=== PATIENT | male | born 1965 | race African-American/Black ===

== ENCOUNTER 2016-03-29 14:19 | Emergency (ER) | payer OTHER ==
[~2016-03-29] VITALS: Ht 182.9 cm; Wt 69.4 kg
[~2016-03-29 14:19] MED LIST: HUMULIN R100 UNITS/ SC; HUMULIN R500 UNIT/1 SC; LANTUS 10100 UNITS/ SC; LANTUS 3 M100 UNITS1 SC; MOBIC15 MG PO; NORVASC10 MG PO; ULTRAM50 MG PO
[2016-03-29 15:10] LABS: BASOPHIL COUNT 0.1 K/uL (0-0.1); EOSINOPHIL (%) 3.2 % (0-5); EOSINOPHIL COUNT 0.3 K/uL (0-0.3); HEMATOCRIT 39.2 % (38.0-50.0); IMMATURE GRANULOCYTE (%) 0.3 % (0.0-0.7); IMMATURE GRANULOCYTE COUNT 0.3 K/uL; LYMPHOCYTE COUNT 2.5 K/uL (1.0-2.8); MCH 30.5 PG (29.0-34.0); MCHC 35.7 G/DL (30.0-36.0); MCV 85.4 FL (86-99); MEAN PLAT.VOLUME 9.8 uM^3 (9.0-12.4); MONOCYTE COUNT 0.5 K/uL (0-0.8); NEUTROPHIL (%) 65.9 % (45-76); NEUTROPHIL COUNT 6.7 K/uL (1.8-6.4); PLATELET COUNT 279 K/uL (156-360); RBC DIS.WIDTH-CV 12.1 % (11.8-14.6); RBC DIS.WIDTH-SD 36.4 % (39-53); RED BLOOD COUNT 4.59 M/uL (4.00-5.50); WHITE BLOOD COUNT 10.2 K/uL (4.1-10.2)
[2016-03-29 15:22] LABS: CHLORIDE 93 mEq/L (99-109)
[2016-03-29 15:22] LABS: POINT-OF-CARE METER ID UU13113702
[2016-03-29 15:23] LABS: SODIUM 129 mEq/L (136-147)
[2016-03-29 15:26] LABS: ANION GAP 14 MEQ/L (2-14)
[2016-03-29 15:28] LABS: GFR ESTIMATE (CALCULATED) > 59 mL/min/
[2016-03-29 15:29] LABS: UREA NITROGEN (BUN) 14 mg/dL (9-23)
[2016-03-29 15:33] LABS: GLUCOSE 450 mg/dL (70-99)
[2016-03-29 16:08] LABS: ADD MIUA? NO; BILIRUBIN NEGATIVE; BLOOD NEGATIVE; COLOR YELLOW ((YELLOW)); GLUCOSE (STRIP) >=1000; KETONES NEGATIVE; LEUKOCYTES NEGATIVE; NITRITE NEGATIVE; PROTEIN (STRIP) NEGATIVE; SPECIFIC GRAVITY 1.034 (1.000-1.030); UCUL ADDED? NO; UROBILINOGEN 0.2 MG/DL (0.2-1.0)
[2016-03-29 16:13] LABS: POINT-OF-CARE METER ID UU13113702; POINT-OF-CARE USER ID STWBNM43
[2016-03-29] MEDS ORDERED: LANTUS 10100 UNITS/ SC (16:18)
[2016-03-29] MEDS ORDERED: NORVASC10 MG PO (16:18)
[2016-03-29] MEDS ORDERED: NOVOLIN,HU100 UNITS1 SC (16:18)
[2016-03-29 16:20] VITALS: BP 148/96
[2016-03-31 15:01] LABS: POINT-OF-CARE METER ID UU13113778
== END 2016-03-29 16:45 | disposition home or self-care (01) ==
LOC: EME 14:19
PROVIDERS: Emergency Medicine
DX: E11.65 Type 2 diabetes mellitus with hyperglycemia (principal); I10 Essential (primary) hypertension; F17.200 Nicotine dependence, unspecified, uncomplicated; Z91.120 Patient's intentional underdosing of medication regimen due to financial hardship
CPT/HCPCS: 80048; 81003; 82948; 85025; 99281; 99285; J7030

== ENCOUNTER 2016-04-24 11:55 | Observation (INO) | payer OTHER ==
[~2016-04-24] VITALS: Ht 182.9 cm; Wt 70.9 kg
[~2016-04-24 11:55] MED LIST changes: +NOVOLIN,HU100 UNITS1 SC
[2016-04-24 12:51] LABS: HEMATOCRIT 41.5 % (38.0-50.0); MCHC 35.7 G/DL (30.0-36.0); MEAN PLAT.VOLUME 10.1 uM^3 (9.0-12.4); PLATELET COUNT 298 K/uL (156-360); RBC DIS.WIDTH-CV 12.2 % (11.8-14.6); RBC DIS.WIDTH-SD 36.5 % (39-53); RED BLOOD COUNT 4.94 M/uL (4.00-5.50)
[2016-04-24 13:00] LABS: CHLORIDE 96 mEq/L (99-109); POTASSIUM 4.4 mEq/L (3.7-5.4); SODIUM 134 mEq/L (136-147)
[2016-04-24 13:03] LABS: ANION GAP 12 MEQ/L (2-14)
[2016-04-24 13:04] LABS: GLUCOSE 417 mg/dL (70-99)
[2016-04-24 13:05] LABS: GFR ESTIMATE (CALCULATED) > 59 mL/min/
[2016-04-24 13:06] LABS: UREA NITROGEN (BUN) 12 mg/dL (9-23)
[2016-04-24] MEDS ORDERED: LANTUS 3 M100 UNITS1 SC (14:46)
[2016-04-24] MEDS ORDERED: AMLODIPINE BESY10 MG PO (14:46)
[2016-04-24] MEDS ORDERED: HUMULIN R100 UNITS/ SC (14:48)
[2016-04-24 16:04] LABS: TROP-I INTERPRETATION NEGATIVE; TROPONIN-I < 0.01 ng/mL (0.0-0.30)
[2016-04-24 17:50] VITALS: BP 151/89
[2016-04-24 18:18] LABS: Estimated Average Glucose 349 mg/dL (70-123); HEMOGLOBIN A1c (GLYCOHEMOGLOB) 13.8 % HGB (Below 5.7)
[2016-04-24 20:25] VITALS: BP 145/88
[2016-04-24 21:53] LABS: TROP-I INTERPRETATION NEGATIVE; TROPONIN-I < 0.01 ng/mL (0.0-0.30)
[2016-04-24 22:19] LABS: POINT-OF-CARE METER ID UU14162513
[2016-04-25] VITALS: BP 142/92
[2016-04-25 04:24] VITALS: BP 142/92
[2016-04-25 08:35] VITALS: BP 142/99
[2016-04-25 08:37] LABS: POINT-OF-CARE METER ID UU13113700
[2016-04-25 12:01] VITALS: BP 148/87
[2016-04-25 12:49] LABS: POINT-OF-CARE METER ID UU13113700
== END 2016-04-25 12:56 | disposition left against medical advice (07) ==
LOC: EME 11:55 → 5WEST 15:04 → EDOF 15:04 → 5WEST 17:32
PROVIDERS: Hospitalist; Internal Medicine
DX: R53.1 Weakness (principal); G83.89 Other specified paralytic syndromes; E11.65 Type 2 diabetes mellitus with hyperglycemia; Z79.4 Long term (current) use of insulin; F14.10 Cocaine abuse, uncomplicated
CPT/HCPCS: 70140; 70450; 70551; 71020; 71550; 72141; 80048; 82948; 83036; 84443; 84484; 85027; 93005; 93880; 99281; 99285; G0378; J1650; J1815; J7030

== ENCOUNTER 2016-05-19 02:25 | Inpatient (IN) | payer OTHER ==
[~2016-05-19] VITALS: Ht 182.9 cm; Wt 65.6 kg
[~2016-05-19 02:25] MED LIST changes: +AMLODIPINE BESY10 MG PO
[2016-05-19 03:11] LABS: BASOPHIL COUNT 0.1 K/uL (0-0.1); EOSINOPHIL (%) 1.2 % (0-5); EOSINOPHIL COUNT 0.1 K/uL (0-0.3); HEMATOCRIT 42.9 % (38.0-50.0); IMMATURE GRANULOCYTE (%) 0.2 % (0.0-0.7); IMMATURE GRANULOCYTE COUNT 0.2 K/uL; LYMPHOCYTE COUNT 2.4 K/uL (1.0-2.8); MCHC 35.4 G/DL (30.0-36.0); MCV 84.8 FL (86-99); MEAN PLAT.VOLUME 9.8 uM^3 (9.0-12.4); MONOCYTE (%) 4.2 % (3-12); MONOCYTE COUNT 0.4 K/uL (0-0.8); NEUTROPHIL (%) 70.6 % (45-76); NEUTROPHIL COUNT 7.2 K/uL (1.8-6.4); PLATELET COUNT 332 K/uL (156-360); RBC DIS.WIDTH-CV 12.8 % (11.8-14.6); RBC DIS.WIDTH-SD 38.8 % (39-53); RED BLOOD COUNT 5.06 M/uL (4.00-5.50); WHITE BLOOD COUNT 10.2 K/uL (4.1-10.2)
[2016-05-19 03:20] LABS: ADD MIUA? NO; BILIRUBIN NEGATIVE; BLOOD NEGATIVE; COLOR STRAW ((YELLOW)); GLUCOSE (STRIP) >=500; KETONES 20; LEUKOCYTES NEGATIVE; NITRITE NEGATIVE; PROTEIN (STRIP) 30; SPECIFIC GRAVITY 1.027 (1.000-1.030); UCUL ADDED? NO; UROBILINOGEN 0.2 MG/DL (0.2-1.0)
[2016-05-19 03:20] LABS: CHLORIDE 98 mEq/L (99-109); POTASSIUM 3.8 mEq/L (3.7-5.4); SODIUM 138 mEq/L (136-147)
[2016-05-19 03:22] LABS: GLUCOSE 302 mg/dL (70-99)
[2016-05-19 03:23] LABS: ANION GAP 14 MEQ/L (2-14)
[2016-05-19 03:25] LABS: GFR ESTIMATE (CALCULATED) > 59 mL/min/; SERUM ETHYL ALCOHOL 55 mg/dL
[2016-05-19 03:26] LABS: UREA NITROGEN (BUN) 7 mg/dL (9-23)
[2016-05-19 03:28] LABS: AMPHETAMINE NEGATIVE (500 ng/mL); BARBITURATES NEGATIVE (200 ng/mL); BENZODIAZEPINES NEGATIVE (150 ng/mL); COCAINE NEGATIVE (150 ng/mL); METHADONE NEGATIVE (200 ng/mL); METHAMPHETAMINE NEGATIVE (500 ng/mL); OPIATES (MORPHINE) NEGATIVE (100 ng/mL); OXYCODONE NEGATIVE (100 ng/mL); PHENCYCLIDINE NEGATIVE (25 ng/mL); PROPOXYPHENE NEGATIVE (300 ng/mL); THC CANNABINOIDS NEGATIVE (50 ng/mL); TRICYCLIC ANTIDEPRESSANTS NEGATIVE (300 ng/mL)
[2016-05-19 03:28] LABS: CREATINE KINASE 122 IU/L (1-294); TOTAL CK 122 IU/L (1-294)
[2016-05-19 03:29] LABS: INTERNAL CONTROLS VALID? YES
[2016-05-19 03:29] LABS: PTT 25.3 (25-32)
[2016-05-19 03:32] LABS: TROP-I INTERPRETATION NEGATIVE; TROPONIN-I < 0.01 ng/mL (0.0-0.30)
[2016-05-19 03:34] LABS: CK-MB 0.8 ng/mL (0.0-4.9)
[2016-05-19 04:54] LABS: HDL CHOLESTEROL 35 MG/DL (Desirable>=40); NON-HDL CHOLESTEROL 161 mg/dL (Desirable<160); TOTAL CHOLESTEROL 196 mg/dL (Desirable<200); TRIGLYCERIDES 549 MG/DL (Normal: <150)
[2016-05-19 07:07] LABS: Estimated Average Glucose 326 mg/dL (70-123)
[2016-05-19 07:08] LABS: HEMATOCRIT 38.6 % (38.0-50.0); MCH 30.1 PG (29.0-34.0); MCHC 35.5 G/DL (30.0-36.0); MCV 84.8 FL (86-99); MEAN PLAT.VOLUME 9.7 uM^3 (9.0-12.4); PLATELET COUNT 298 K/uL (156-360); RBC DIS.WIDTH-CV 12.5 % (11.8-14.6); RBC DIS.WIDTH-SD 37.9 % (39-53); RED BLOOD COUNT 4.55 M/uL (4.00-5.50)
[2016-05-19 07:47] LABS: ALKALINE PHOSPHATASE 60 IU/L (3-129); ANION GAP 10 MEQ/L (2-14); CHLORIDE 98 MEQ/L (99-109); GFR ESTIMATE (CALCULATED) > 59 mL/min/; GLUCOSE 191 mg/dL (70-99); SAMPLE HEMOLYSIS CHECK 1; SAMPLE ICTERIC CHECK 0; SAMPLE LIPEMIA CHECK 0; SODIUM 137 MEQ/L (136-147); UREA NITROGEN (BUN) 7 mg/dL (9-23)
[2016-05-19 08:05] LABS: TOTAL BILIRUBIN 0.5 MG/DL (0.0-1.0)
[2016-05-19 10:11] LABS: POINT-OF-CARE METER ID UU14100415
[2016-05-19 12:53] LABS: POINT-OF-CARE METER ID UU14100415
[2016-05-19 16:02] VITALS: BP 157/95
[2016-05-19 20:08] VITALS: BP 187/99
[2016-05-20 00:05] VITALS: BP 163/78
[2016-05-20 03:10] VITALS: BP 154/88
[2016-05-20 03:52] VITALS: BP 150/100
[2016-05-20 07:58] VITALS: BP 136/83
[2016-05-20 08:51] LABS: LYME DISEASE SEROLOGY SCREEN NEGATIVE (NEGATIVE)
[2016-05-22 12:41] LABS: ANTI-NUCLEAR AB SCRN/RFLX(ANA) NONREACTIVE (NONREACTIVE)
== END 2016-05-20 14:14 | disposition left against medical advice (07) | DRG 556 ==
LOC: EME → EDBD 02:25 → EDOF 04:40 → 5SOUTH 05:53 → EDOF 05:53 → 5SOUTH 15:53
PROVIDERS: Emergency Medicine; Hospitalist; Internal Medicine; Specialist
DX: M62.81 Muscle weakness (generalized) (principal); E11.65 Type 2 diabetes mellitus with hyperglycemia; I10 Essential (primary) hypertension; R47.81 Slurred speech; M47.812 Spondylosis without myelopathy or radiculopathy, cervical region; M48.02 Spinal stenosis, cervical region; E78.5 Hyperlipidemia, unspecified; F14.90 Cocaine use, unspecified, uncomplicated; F17.210 Nicotine dependence, cigarettes, uncomplicated; E78.1 Pure hyperglyceridemia; F10.10 Alcohol abuse, uncomplicated; Z91.19 Patient's noncompliance with other medical treatment and regimen; Z79.4 Long term (current) use of insulin; Z83.3 Family history of diabetes mellitus; Z80.3 Family history of malignant neoplasm of breast
CPT/HCPCS: 70450; 70496; 70498; 70551; 71010; 80048; 80053; 80061; 81003; 82550; 82553; 82945; 82948; 83036; 83873 90; 83916 90; 84157; 84484; 85025; 85027; 85610; 85651; 85730; 86038; 86235; 86618; 89051; 92523 GN; 92526 GN; 93005; 93306; 99281; 99285; G0480; G9162 GN CH; G9163 GN CH; G9164 GN CH; J1644; J1815; J1885; J3411; J3475; J7030

== ENCOUNTER 2016-06-16 00:48 | Emergency (ER) | payer OTHER ==
[~2016-06-16] VITALS: Ht 182.9 cm; Wt 70.3 kg
[2016-06-16 02:34] LABS: ADD MIUA? NO; BILIRUBIN NEGATIVE; BLOOD NEGATIVE; COLOR STRAW ((YELLOW)); GLUCOSE (STRIP) >=500; KETONES NEGATIVE; LEUKOCYTES NEGATIVE; NITRITE NEGATIVE; PROTEIN (STRIP) NEGATIVE; SPECIFIC GRAVITY 1.014 (1.000-1.030); UCUL ADDED? NO; UROBILINOGEN 0.2 MG/DL (0.2-1.0)
[2016-06-16] MEDS ORDERED: KEFLEX500 MG PO (02:59)
[2016-06-16] MEDS ORDERED: VOLTAREN 1% GE100 GM TP (02:59)
[2016-06-16 03:13] VITALS: BP 139/92
== END 2016-06-16 03:14 | disposition home or self-care (01) ==
LOC: EXP 00:48 → EME 00:48 → EXP 03:14
PROVIDERS: Physician Assistant
DX: R10.32 Left lower quadrant pain (principal); I10 Essential (primary) hypertension; E11.9 Type 2 diabetes mellitus without complications; Z79.4 Long term (current) use of insulin; F17.200 Nicotine dependence, unspecified, uncomplicated
CPT/HCPCS: 74176; 81003; 99281; 99284

== ENCOUNTER 2016-07-14 12:48 | Emergency (ER) | payer OTHER ==
[~2016-07-14] VITALS: Ht 182.9 cm; Wt 69.8 kg
[~2016-07-14 12:48] MED LIST changes: +KEFLEX500 MG PO; +VOLTAREN 1% GE100 GM TP
[2016-07-14 12:56] VITALS: BP 175/116
== END 2016-07-14 16:14 | disposition left against medical advice (07) ==
LOC: EME 12:48
DX: M25.551 Pain in right hip (principal); M25.552 Pain in left hip; M79.604 Pain in right leg; M79.671 Pain in right foot; M79.672 Pain in left foot; Z91.81 History of falling; Z53.21 Procedure and treatment not carried out due to patient leaving prior to being seen by health care provider

== ENCOUNTER 2016-07-17 10:21 | Emergency (ER) | payer OTHER ==
[~2016-07-17] VITALS: Ht 182.9 cm; Wt 72.8 kg
[2016-07-17] MEDS ORDERED: FLEXERIL10 MG PO (11:50)
[2016-07-17] MEDS ORDERED: ULTRAM50 MG PO (11:50)
[2016-07-17 12:07] VITALS: BP 155/85
== END 2016-07-17 12:07 | disposition left against medical advice (07) ==
LOC: EME 10:21
DX: M25.552 Pain in left hip (principal); M25.561 Pain in right knee; G89.29 Other chronic pain; W18.30XA Fall on same level, unspecified, initial encounter; E11.9 Type 2 diabetes mellitus without complications; E78.5 Hyperlipidemia, unspecified; I10 Essential (primary) hypertension; Z86.73 Personal history of transient ischemic attack (TIA), and cerebral infarction without residual deficits; Z79.4 Long term (current) use of insulin; Z87.891 Personal history of nicotine dependence
CPT/HCPCS: 99281; 99283

== ENCOUNTER 2016-08-02 22:16 | Observation (INO) | payer OTHER ==
[~2016-08-02] VITALS: Ht 182.9 cm; Wt 66.7 kg
[~2016-08-02 22:16] MED LIST changes: +FLEXERIL10 MG PO
[2016-08-02 23:11] LABS: MCH 30.6 PG (29.0-34.0); MCHC 35.8 G/DL (30.0-36.0); MCV 85.5 FL (86-99); MEAN PLAT.VOLUME 9.8 uM^3 (9.0-12.4); PLATELET COUNT 328 K/uL (156-360); RBC DIS.WIDTH-CV 11.7 % (11.8-14.6); RBC DIS.WIDTH-SD 36.3 % (39-53); RED BLOOD COUNT 4.68 M/uL (4.00-5.50); WHITE BLOOD COUNT 12.1 K/uL (4.1-10.2)
[2016-08-02 23:24] LABS: CHLORIDE 100 mEq/L (99-109); POTASSIUM 3.3 mEq/L (3.7-5.4); SODIUM 139 mEq/L (136-147)
[2016-08-02 23:26] LABS: GLUCOSE 149 mg/dL (70-99)
[2016-08-02 23:27] LABS: ANION GAP 13 MEQ/L (2-14)
[2016-08-02 23:30] LABS: GFR ESTIMATE (CALCULATED) > 59 mL/min/
[2016-08-02 23:31] LABS: UREA NITROGEN (BUN) 11 mg/dL (9-23)
[2016-08-02 23:32] LABS: TROP-I INTERPRETATION NEGATIVE; TROPONIN-I < 0.01 ng/mL (0.0-0.30)
[2016-08-03] LABS: SERUM ETHYL ALCOHOL < 10 mg/dL
[2016-08-03 00:41] LABS: MAGNESIUM 2.1 mg/dL (1.3-2.7)
[2016-08-03 01:33] VITALS: BP 156/88
[2016-08-03 03:22] LABS: ADD MIUA? NO; BILIRUBIN NEGATIVE; BLOOD NEGATIVE; COLOR YELLOW ((YELLOW)); GLUCOSE (STRIP) >=500; KETONES NEGATIVE; LEUKOCYTES NEGATIVE; NITRITE NEGATIVE; PROTEIN (STRIP) NEGATIVE; SPECIFIC GRAVITY 1.017 (1.000-1.030); UCUL ADDED? NO
[2016-08-03 03:37] LABS: AMPHETAMINES QUANT VALUE 0 NG/ML; BARBITUATES QUANT VALUE 0 NG/ML; BENZODIAZEPINES QUANT VALUE 0 NG/ML; BENZODIAZEPINES, URINE SCREEN Negative (200 ng/mL); MARIJUANA QUANT VALUE 0 NG/ML; PHENCYCLIDINE QUANT VALUE 0 NG/ML
[2016-08-03 03:49] VITALS: BP 132/74
[2016-08-03 07:41] VITALS: BP 136/87
[2016-08-03 08:15] LABS: POINT-OF-CARE METER ID UU13113831
[2016-08-03 09:30] LABS: TROP-I INTERPRETATION NEGATIVE; TROPONIN-I < 0.01 ng/mL (0.0-0.30)
[2016-08-03 10:20] VITALS: BP 130/77
[2016-08-03 12:25] LABS: POINT-OF-CARE METER ID UU13113831
[2016-08-03] MEDS ORDERED: OMEPRAZOLE20 MG PO (13:50)
[2016-08-03] MEDS ORDERED: IBUPROFEN400 MG PO (13:50)
[2016-08-03 13:59] LABS: TROP-I INTERPRETATION NEGATIVE; TROPONIN-I 0.01 ng/mL (0.0-0.30)
[2016-08-03 18:34] LABS: POINT-OF-CARE METER ID UU14162513
[2016-08-03 18:57] VITALS: BP 134/84
== END 2016-08-03 21:02 | disposition home or self-care (01) ==
LOC: EME 22:16 → EDOF 08-03 00:21 → 5WEST 08-03 01:26
PROVIDERS: Emergency Medicine; Physician Assistant Medical; Student in an Organized Health Care Education/Training Program
DX: R07.89 Other chest pain (principal); I16.0 Hypertensive urgency; I10 Essential (primary) hypertension; E87.6 Hypokalemia; R00.0 Tachycardia, unspecified; R51 Headache; M25.551 Pain in right hip; M25.561 Pain in right knee; E78.5 Hyperlipidemia, unspecified; E11.9 Type 2 diabetes mellitus without complications; F10.10 Alcohol abuse, uncomplicated; Z79.4 Long term (current) use of insulin; Z86.73 Personal history of transient ischemic attack (TIA), and cerebral infarction without residual deficits; Z87.891 Personal history of nicotine dependence
CPT/HCPCS: 71020; 73502; 73552; 73564; 80048; 80306 90; 81003; 82948; 83735; 83880; 84132; 84484; 85027; 93005; 99281; 99285; G0378; G0480; J0360; J1200; J1650; J1815; J1885; J2270; J2405; J3411; J3480; J7030

== ENCOUNTER 2016-08-05 03:59 | Emergency (ER) | payer OTHER ==
[~2016-08-05] VITALS: Ht 182.9 cm; Wt 69.1 kg
[~2016-08-05 03:59] MED LIST changes: +IBUPROFEN400 MG PO; +OMEPRAZOLE20 MG PO
[2016-08-05 04:27] LABS: HEMATOCRIT 40.2 % (38.0-50.0); MCH 30.6 PG (29.0-34.0); MCHC 35.8 G/DL (30.0-36.0); MCV 85.4 FL (86-99); MEAN PLAT.VOLUME 9.5 uM^3 (9.0-12.4); PLATELET COUNT 328 K/uL (156-360); RBC DIS.WIDTH-CV 11.4 % (11.8-14.6); RBC DIS.WIDTH-SD 35.5 % (39-53); RED BLOOD COUNT 4.71 M/uL (4.00-5.50); WHITE BLOOD COUNT 8.4 K/uL (4.1-10.2)
[2016-08-05 04:36] LABS: CHLORIDE 103 mEq/L (99-109); POTASSIUM 3.7 mEq/L (3.7-5.4); SODIUM 139 mEq/L (136-147)
[2016-08-05 04:38] LABS: GLUCOSE 155 mg/dL (70-99)
[2016-08-05 04:40] LABS: ANION GAP 10 MEQ/L (2-14); TOTAL BILIRUBIN 0.5 mg/dL (0.0-1.0)
[2016-08-05 04:42] LABS: ALKALINE PHOSPHATASE 63 IU/L (3-129); GFR ESTIMATE (CALCULATED) > 59 mL/min/
[2016-08-05 04:43] LABS: UREA NITROGEN (BUN) 10 mg/dL (9-23)
[2016-08-05 04:45] LABS: LIPASE 17 U/L (1.0-51.0)
[2016-08-05 06:17] LABS: TROP-I INTERPRETATION NEGATIVE; TROPONIN-I < 0.01 ng/mL (0.0-0.30)
[2016-08-05 06:38] LABS: ADD MIUA? NO; BILIRUBIN NEGATIVE; BLOOD NEGATIVE; COLOR STRAW ((YELLOW)); GLUCOSE (STRIP) 50; KETONES NEGATIVE; LEUKOCYTES NEGATIVE; NITRITE NEGATIVE; PROTEIN (STRIP) NEGATIVE; SPECIFIC GRAVITY 1.027 (1.000-1.030); UCUL ADDED? NO; UROBILINOGEN 0.2 MG/DL (0.2-1.0)
[2016-08-05] MEDS ORDERED: ZOFRAN8 MG PO (06:50)
[2016-08-05] MEDS ORDERED: BENTYL20 MG PO (06:50)
[2016-08-05 07:24] VITALS: BP 163/94
== END 2016-08-05 07:26 | disposition home or self-care (01) ==
LOC: EME 03:59
PROVIDERS: Emergency Medicine
DX: R11.2 Nausea with vomiting, unspecified (principal); R19.7 Diarrhea, unspecified; I10 Essential (primary) hypertension; R30.0 Dysuria; R10.814 Left lower quadrant abdominal tenderness; K57.90 Diverticulosis of intestine, part unspecified, without perforation or abscess without bleeding; E11.9 Type 2 diabetes mellitus without complications; Z79.4 Long term (current) use of insulin; F17.200 Nicotine dependence, unspecified, uncomplicated
CPT/HCPCS: 74177; 80053; 81003; 83690; 84484; 85027; 87493; 93005; 99281; 99285; J2405; J2765

== ENCOUNTER 2017-06-04 00:12 | Emergency (ER) | payer OTHER ==
[~2017-06-04] VITALS: Ht 182.9 cm; Wt 72.7 kg
[~2017-06-04 00:12] MED LIST changes: +BENTYL20 MG PO; +ZOFRAN8 MG PO
[2017-06-04] MEDS ORDERED: GABAPENTIN300 MG PO (01:15)
[2017-06-04 02:16] VITALS: BP 188/114
== END 2017-06-04 02:20 | disposition home or self-care (01) ==
LOC: EME 00:12
DX: E11.40 Type 2 diabetes mellitus with diabetic neuropathy, unspecified (principal); I10 Essential (primary) hypertension; F17.200 Nicotine dependence, unspecified, uncomplicated
CPT/HCPCS: 99281; 99283